=== PATIENT | male | born 1940 | race Caucasian/White ===

== ENCOUNTER 2020-11-11 09:02 | Day surgery (SDC) | payer MEDICARE, BC, SELFPAY ==
--- NOTE | 2020-11-08 15:12 | MHC.SHP ---
Pre-Procedural Eval Section A The patient is an INPATIENT: No The History & Physical has been completed within 30 days and I have reviewed it.: Yes Section B Chief Complaint: Cataract Left eye Allergies: Allergies Allergy/AdvReac Type Severity Reaction Status Date / Time No Known Allergies Allergy Verified 11/05/20 15:22 Plan Diagnosis/Plan: Unchanged I have reviewed the history and physical and performed a pertinent physical examination on my patient. No changes have occurred unless specified.
[2020-11-11 09:24] VITALS: BMI 33.2
[2020-11-11 09:25] VITALS: BP 158/77; PULSE 59; RESP 18; TEMP 36.1; O2SAT 98
[2020-11-11] MEDS: Tetracaine HCl/PF 0.5% Oph Sol 4 ML DROPS 1 DROP EYE-LEFT (09:38)
[2020-11-11] MEDS: Tropicamide 1 % Ophth Sol 3 ML BTL 1 DROP EYE-LEFT ×3 (09:40→09:56)
[2020-11-11] MEDS: Phenylephrine HCL 2.5% Oph SoL 2 ML BOTTLE 1 DROP EYE-LEFT ×3 (09:44→09:57)
--- NOTE | 2020-11-11 09:58 | HO.ANESPROP2 ---
[facility] Past Medical History Medical History Arthritis Back pain CAD (coronary artery disease) GERD (gastroesophageal reflux disease) HTN (hypertension) Hx of aortic valve disorder Hyperlipidemia Prostate cancer Surgical History Surgical History Hx of coronary artery bypass surgery Social History Social History Are you a primary animal care supervisor to a significant other at home: No Do you presently have visiting nurse or other home services: No Have you been hit, kicked, punched, or otherwise hurt by someone within the past year? If so, by whom?: No Advance Directives: No Advance Directives Information Provided: No Advance Directives on File: No Recently lost weight without trying: No Meds Allergies Allergy/AdvReac Type Severity Reaction Status Date / Time No Known Allergies Allergy Verified 11/05/20 15:22 Active Medications: Current Medications Generic Name Dose Route Start Last Admin Trade Name Freq PRN Reason Stop Dose Admin Povidone Iodine 1 appl 11/11/20 08:53 Povidone Iodine 5 % Ophth Soln 30 Ml Bottle EYE-LEFT PREOP PRN Pre-Op Surgical Implant Prophy Home Medications Medication Instructions Recorded Confirmed Last Taken Type albuterol sulfate 2 puff INHALATION Q6H PRN 11/05/20 11/05/20 Unknown History atorvastatin 1 tab PO DAILY 11/05/20 11/05/20 Unknown History ezetimibe 1 tab PO DAILY 11/05/20 11/05/20 Unknown History fluticasone propion-salmeterol 1 puff INHALATION Q12H 11/05/20 11/05/20 Unknown History [Wixela Inhub] furosemide 1 tab PO DAILY 11/05/20 11/05/20 Unknown History gabapentin 1 cap PO BEDTIME 11/05/20 11/05/20 Unknown History sennosides [senna] 8.6 mg PO BEDTIME 11/05/20 11/05/20 Unknown History tamsulosin 1 cap PO DAILY 11/05/20 11/05/20 Unknown History timolol maleate 1 drp OPHTHALMIC-RIGHT QAM 11/05/20 11/05/20 Unknown History Exam Exam Date and Time: November 11, 2020 0958 Height,Weight and Vital Signs: Height 5 ft Weight 77.111 kg Last Vital Signs Temp 97.0 F 11/11/20 09:25 Pulse 59 11/11/20 09:25 Resp 18 11/11/20 09:25 BP 158/77 H 11/11/20 09:25 Pulse Ox 98 11/11/20 09:25 Airway Mallampati Class: II TM Dist: >3cm Loose/Missing/Broken Teeth: No Heart: RRR Lungs: CTA Assessment and Plan Assessment Anesthesia Assessment: Anesthesia Plan Discussed and Chart Reviewed Final Anesthetic Review NPO: Yes ASA Class: III Final Preanesthetic Review: Meds/Allgs Chart Reviewed, Consent Obtained/Reviewed and Anes Risks/Benef Reviewed Patient Risk: Intermediate Procedure Risk: Low Anesthetic Plan Anesthetic Plan: MAC: Disposition: Standard PACU
[2020-11-11] MEDS: Lactated Ringers 500 ML 50 ML IV (10:10)
--- NOTE | 2020-11-11 11:37 | HO.PNOPHT ---
Ophthalmology Procedure Procedure Date of Service: 11/11/20 Ophthalmology Viscoelastic: Healon Duet Dual Pack Pro Ophthalmology Lenses: TECNIS ZXR00 (22.5) Procedure Notes: PREOPERATIVE DIAGNOSIS: Decreased visual acuity left eye secondary to cataract POSTOPERATIVE DIAGNOSIS: Same PROCEDURE: Left cataract extraction with multifocal intraocular lens insertion SURGEON: Polo Stevens M.D. ANESTHESIA: Topical/MAC ESTIMATED BLOOD LOSS: None COMPLICATIONS: None After obtaining informed consent, the patient was brought to the operation room suite and placed in the supine position. After adequate sedation per anesthesia, topical drops of Tetracaine were given to the left eye. The eye was then prepped and draped in the usual sterile fashion. The operating room microscope was then positioned over the operative eye and a lid speculum placed. A paracentesis was created. Viscoelastic was then instilled into the anterior chamber. A three plane incision was then created temporally, utilizing a 2.85 mm keratome. Capsulotomy forceps were then utilized to create a circular tear capsulotomy. Hydrodissection and hydrodelineation were carried out until adequate mobilization of the nucleus occurred. Phacoemulsification was then utilized to remove the dense central nucleus followed by removal of the cortical material utilizing the automated aspiration irrigation unit. Viscoelastic was instilled into the posterior capsular bag followed by placement of a multifocal posterior chamber intraocular lens without difficulty. The residual Viscoelastic was then removed utilizing the automated IA machine. The wound was check and found to be watertight. The patient tolerated the procedure well and the lid speculum was removed. Intracameral injection of Vigamox 0.1 mL followed by a subtenon injection of Kenalog-40 0.2 mL were administered. The patient will be seen in the a.m.
[2020-11-11 12:00] VITALS: BP 162/83; PULSE 55; RESP 20; TEMP 36.4; O2SAT 98
== END 2020-11-11 12:35 | disposition home or self-care (01) ==
PROVIDERS: PCP Internal Medicine; Visit Provider Ophthalmology
PROC: (CPT 66984; principal; 2020-11-11 11:10)
DX: H25.12 Age-related nuclear cataract, left eye (principal); H54.7 Unspecified visual loss; Z83.511 Family history of glaucoma; H40.051 Ocular hypertension, right eye; H04.123 Dry eye syndrome of bilateral lacrimal glands; I10 Essential (primary) hypertension; Z79.899 Other long term (current) drug therapy; Z85.46 Personal history of malignant neoplasm of prostate
CPT/HCPCS: 66984; J2250; J3010; J3300; V2788

== ENCOUNTER 2020-11-25 07:49 | Day surgery (SDC) | payer MEDICARE, BC, SELFPAY ==
[2020-11-19 13:58] VITALS: BMI 30.5
--- NOTE | 2020-11-22 12:59 | MHC.SHP ---
Pre-Procedural Eval Section A The patient is an INPATIENT: No The History & Physical has been completed within 30 days and I have reviewed it.: Yes Section B Chief Complaint: Cataract Right Eye Allergies: Allergies Allergy/AdvReac Type Severity Reaction Status Date / Time No Known Allergies Allergy Verified 11/19/20 13:58 Plan Diagnosis/Plan: Unchanged I have reviewed the history and physical and performed a pertinent physical examination on my patient. No changes have occurred unless specified.
[2020-11-25] MEDS: Tetracaine HCl/PF 0.5% Oph Sol 4 ML DROPS 1 DROP EYE-RIGHT (08:14)
[2020-11-25] MEDS: Tropicamide 1 % Ophth Sol 3 ML BTL 1 DROP EYE-RIGHT ×3 (08:16→08:23)
[2020-11-25] MEDS: Phenylephrine HCL 2.5% Oph SoL 2 ML BOTTLE 1 DROP EYE-RIGHT ×3 (08:18→08:25)
[2020-11-25] MEDS: Lactated Ringers 500 ML 50 ML IV (08:32)
[2020-11-25 08:33] VITALS: BP 177/96; PULSE 58; RESP 20; TEMP 36.1; O2SAT 97
--- NOTE | 2020-11-25 08:38 | HO.ANESPROP2 ---
HPI - Anesthesia Eval Consult details Narrative: 80 year old male patient here for Right cataract extraction, IOL insertion PMFSH Past Medical History Medical History (Updated 11/25/20 @ 08:39 by Bernie Chew) Arthritis Back pain CAD (coronary artery disease) GERD (gastroesophageal reflux disease) HTN (hypertension) Hx of aortic valve disorder Hyperlipidemia Prostate cancer Family History Family history of problems with anesthesia: No Surgical History Surgical History (Updated 11/19/20 @ 13:57 by Marya Richards) H/O cataract extraction Hx of coronary artery bypass surgery History of Problems with Anesthesia: No Social History Social History Advance Directives: No Advance Directives Information Provided: No Advance Directives on File: No Recently lost weight without trying: No Meds Allergies Allergy/AdvReac Type Severity Reaction Status Date / Time No Known Allergies Allergy Verified 11/25/20 08:10 Active Medications: Current Medications Generic Name Dose Route Start Last Admin Trade Name Freq PRN Reason Stop Dose Admin Acetaminophen 650 mg 11/25/20 08:10 Acetaminophen 325 Mg Tablet PO ONCE PRN Pain, Mild (Pain Scale 1-3) Sodium Chloride 500 mls @ 50 mls/hr 11/25/20 06:00 Ns IV 11/25/20 15:59 .Q10H JUDSON Lactated Ringer's 500 mls @ 50 mls/hr 11/25/20 07:15 11/25/20 08:32 Lr IV 50 mls/hr .Q10H JUDSON Administration Ondansetron HCl 4 mg 11/25/20 08:10 Ondansetron Hcl 4 Mg/2 Ml Vial IVPUSH ONCE PRN Nausea and Vomiting Povidone Iodine 1 appl 11/25/20 07:42 Povidone Iodine 5 % Ophth Soln 30 Ml Bottle EYE-RIGHT PREOP PRN Pre-Op Surgical Implant Prophy Home Medications Medication Instructions Recorded Confirmed Last Taken Type albuterol sulfate 2 puff INHALATION Q6H PRN 11/05/20 11/19/20 11/11/20 History 0630 atorvastatin 1 tab PO DAILY 11/05/20 11/19/20 Unknown History ezetimibe 1 tab PO DAILY 11/05/20 11/19/20 Unknown History fluticasone propion-salmeterol 1 puff INHALATION Q12H 11/05/20 11/19/20 Unknown History [Wixela Inhub] furosemide 1 tab PO DAILY 11/05/20 11/19/20 Unknown History gabapentin 1 cap PO BEDTIME 11/05/20 11/19/20 Unknown History sennosides [senna] 8.6 mg PO BEDTIME 11/05/20 11/19/20 Unknown History tamsulosin 1 cap PO DAILY 11/05/20 11/19/20 Unknown History timolol maleate 1 drp OPHTHALMIC-RIGHT QAM 11/05/20 11/19/20 Unknown History Exam Exam Date and Time: November 25, 2020 0838 Height,Weight and Vital Signs: Height 5 ft 4 in Weight 80.739 kg Last Vital Signs Temp 96.9 F 11/25/20 08:33 Pulse 58 11/25/20 08:33 Resp 20 11/25/20 08:33 BP 177/96 H 11/25/20 08:33 Pulse Ox 97 11/25/20 08:33 Airway Mallampati Class: II TM Dist: >3cm Neck ROM: Full Heart: RRR Lungs: CTAB Assessment and Plan Assessment Anesthesia Assessment: Anesthesia Plan Discussed and Chart Reviewed Final Anesthetic Review NPO: Yes ASA Class: III Final Preanesthetic Review: No Changes in Pt Med Stat, Meds/Allgs Chart Reviewed, Consent Obtained/Reviewed and Anes Risks/Benef Reviewed Patient Risk: Intermediate Procedure Risk: Low Assessment/Block/Sedation in SS: Assess/Block/Sedation-SS Anesthetic Plan Anesthetic Plan: MAC: Disposition: Standard PACU
--- NOTE | 2020-11-25 09:06 | HO.PNOPHT ---
Ophthalmology Procedure Procedure Date of Service: 11/25/20 Ophthalmology Viscoelastic: Healon Duet Dual Pack Pro Ophthalmology Lenses: TECNIS [id number] (23) Procedure Notes: PREOPERATIVE DIAGNOSIS: Decreased visual acuity right eye secondary to cataract POSTOPERATIVE DIAGNOSIS: Same PROCEDURE: Right cataract extraction with toric multifocal intraocular lens insertion axis 174 SURGEON: Polo Stevens M.D. ANESTHESIA: Topical/MAC ESTIMATED BLOOD LOSS: None COMPLICATIONS: None After obtaining informed consent, the patient was brought to the operating room suite and placed in the supine position. After adequate sedation per anesthesia, topical drops of Tetracaine were given to the right eye. The eye was then prepped and draped in the usual sterile fashion. The operating room microscope was then positioned over the operative eye and a lid speculum placed. A paracentesis was created. Viscoelastic was then instilled into the anterior chamber. A three plane incision was then created temporally, utilizing a 2.85 mm keratome. Capsulotomy forceps were then utilized to create a circular tear capsulotomy. Hydrodissection and hydrodelineation were carried out until adequate mobilization of the nucleus occurred. Phacoemulsification was then utilized to remove the dense central nucleus followed by removal of the cortical material utilizing the automated aspiration irrigation unit. Viscoelastic was instilled into the posterior capsular bag followed by placement of a toric multifocal posterior chamber intraocular lens axis 174 without difficulty. The residual Viscoelastic was then removed utilizing the automated IA machine. The wound was checked and found to be watertight. The patient tolerated the procedure well and the lid speculum was removed. Intracameral injection of Vigamox 0.1 mL followed by a subtenon injection of Kenalog-40 0.2 mL were administered. The patient will be seen in the a.m.
[2020-11-25 09:32] VITALS: BP 134/72; PULSE 49; RESP 20; TEMP 36.4; O2SAT 96
== END 2020-11-25 10:11 | disposition home or self-care (01) ==
PROVIDERS: PCP Internal Medicine; Visit Provider Ophthalmology
PROC: (CPT 66984; principal; 2020-11-25 09:10)
DX: H25.11 Age-related nuclear cataract, right eye (principal); H54.7 Unspecified visual loss; I10 Essential (primary) hypertension; H40.051 Ocular hypertension, right eye; Z83.511 Family history of glaucoma; Z79.899 Other long term (current) drug therapy
CPT/HCPCS: 66984; J2250; J3010; J3300; V2788